=== PATIENT | female | born 1955 | race Caucasian/White ===

== ENCOUNTER 2022-06-23 06:04 | Inpatient (IN) | payer MEDICARE, SELFPAY ==
[2022-06-23] VITALS (23 sets, daily range): BP systolic 102–150; BP diastolic 52–83; PULSE 60–94; RESP 10–18; TEMP 35.7–36.9; O2SAT 92–98; BMI 23.6
[2022-06-23] MEDS: LACTATED RINGERS 1000 ML 1,000 ML 35 ML IV ×2 (06:30→09:20)
[2022-06-23] MEDS: SODIUM CHLORIDE 0.9 % (FLUSH) 10 ML SYRINGE IVF (06:55)
[2022-06-23 07:14] LABS: Basophils Absolute Auto 0.02 K/uL (0.00-0.30); Basophils Percent Auto 0.3 % (0.0-3.0); Eosinophils Absolute Auto 0.11 K/uL (0.00-0.50); Eosinophils Percent Auto 1.6 % (0.0-7.0); Hematocrit 40.9 % (33.0-51.0); Hemoglobin* 13.8 gm/dL (12.0-16.0); Immature Granulocytes Abs Auto 0.01 K/uL (0.00-0.30); Lymphocytes Absolute Auto 1.98 K/uL (0.90-2.90); Lymphocytes Percent Auto 28.9 % (20-44); Mean Corpuscular HGB Conc 34 gm/dL (32-36); Mean Corpuscular Hemoglobin 32 pg (26-34); Mean Corpuscular Volume 93 fL (80-100); Monocytes Percent Auto 7.2 % (0.0-11.0); Neutrophils Absolute Auto 4.24 K/uL (1.7-7.0); Neutrophils Percent Auto 61.9 % (42.0-72.0); Platelet Count* 256 K/uL (140-440); RDW Coefficient of Variation % 12.4 % (11.5-15.5); Red Blood Count 4.38 m/uL (4.00-5.20); White Blood Count* 6.85 K/uL (4.50-11.00)
[2022-06-23 07:17] LABS: Slide Review Reflex No
[2022-06-23] MEDS: CIPROFLOXACIN 400 MG/200 ML inj IVPB ×2 (07:55→20:01)
[2022-06-23] MEDS: metroNIDAZOLE 500 MG/100 ML PIGGYBACK IVPB ×2 (08:30→16:29)
--- NOTE | 2022-06-23 09:34 | SUR.OPER ---
Updated sister of surgical progress @3330. Sister was thankful for the call.
--- NOTE | 2022-06-23 09:50 | P.NB_ITS ---
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 Images saved: Yes Medications given in 5ml increments after negative aspiration: Marcaine %: 0.25 mL: 30 Needle gauge: 20 and Exparel mL: 10 Patient tolerated procedure well: Yes Block Charges Block Charge (with Pro Fee): TAP Bilateral Use of Ultrasound Machine for Block: Yes- US Guidance/pain block
[2022-06-23] MEDS: KETOROLAC 15 MG/ML inj IVP (09:58)
--- NOTE | 2022-06-23 10:02 | PM.GSPRC ---
Operative Note Date of procedure: 06/23/22 Type of Procedure: Laparoscopic right hemicolectomy Procedure Description: After discussing the risks and benefits of the procedure, the patient signed informed consent.? The operative site was marked and the patient was brought to the operating room and placed on the operating table in supine position.? Care was taken to pad the patient's pressure points.?? The patient was then intubated by anesthesia.?? A tap block was performed to help assist with postop pain management. A Yi was sterilely placed. The operative site was then prepped and draped in the usual sterile fashion.? A time-out was then performed. Dr. Katz placed a 5mm Visiport into the left upper quadrant under direct visualization. The abdomen was insufflated and examined for any injury, with none found. An additional 5 mm port was placed at the umbilicus and lower midline. A 12 mm port was placed in the lower left quadrant. All ports were placed under direct visualization. I helped assist with retraction while Dr. Katz raise the cecum towards the anterior abdominal wall and identified the ileocolic pedicle. The peritoneum over the mesentery was dissected away with the LigaSure device and the vessels circumferentially dissected out. The vessels were going directly into the colonic wall and well away from the ureter, which remained out of our operative field. Dr. Katz then took a 30 mm vascular laparoscopic stapler and transected the pedicle. The staple line was examined and hemostasis was excellent. I continued to assist with retraction while Dr. Katz dissected through the mesentery and entered into the avascular plane between the mesentery and retroperitoneum. She further develop this plane with blunt dissection until the duodenum was visualized, signifying the end of our medial dissection. Overlying mesentery was further dissected with the LigaSure device up to the middle colic vessels. I then assisted with retraction while Dr. Katz dissected the gastrocolic ligament entering into the lesser sac. The overlying mesentery of the transverse colon was dissected away and Dr. Katz carefully took down the hepatic flexure and the hepatocolic ligaments. I then used the LigaSure device to take down the lateral attachments of the ascending colon along the lateral abdominal wall. Dissection was carried down to the terminal ileum. Once the colon was fully mobilized Dr. Katz carefully took down the mesentery of the terminal ileum. A grasper was then placed on the appendix and we decided to moved to the open portion of the procedure. Dr. Katz made a midline incision around the umbilicus with a 15 blade. Dissection was carried down through the subcutaneous tissue with electrocautery. The midline of the fascia was identified and sharply incised with electrocautery. I then assisted with retraction and identification of the peritoneum which was sharply incised and the abdomen entered. The abdomen was then desufflated and the incision carried superiorly and inferiorly. A small Kenneth wound retractor was placed into the incision. The specimen was identified and brought into the operative field. A mid portion of the transverse colon was identified for transection. This did appear to have good palpable mesenteric blood flow and was viable in appearance. Dr. Katz carefully dissected off epiploic fat and made a hole in the mesentery adjacent to the colonic wall. A 60 mm laparoscopic bowel staple load was used to transect the colon. The staple line was inspected and there was a small point of bleeding, which was controlled with an interrupted 3-[address] Katz then identified a point of the terminal ileum for dissection. A hole was made in the mesentery adjacent to the bowel wall and a 45 mm laparoscopic bowel staple load used to transect the terminal ileum. The staple line was inspected and appeared viable, with evidence of adequate hemostasis. Any remaining mesenteric attachments were then dissected with the LigaSure device and the specimen was placed on the back table to be sent to pathology. Dr. Katz did examine the specimen on the back table and was able to identify the large polyp, with adequate margins appreciated. Dr. Katz then placed a stay stitch suture, to help with alignment of the small bowel and colon, ensuring that the anti mesenteric and mesenteric portions of the bowel were lined up parallel. I helped assist with retraction while she excised off a corner of each staple line. An 80 mm Endo-TOMÁS staple load was then placed into each enterotomy and a small bowel to colonic [id number], functional end-to-end anastomosis created. As the stapler was removed the mucosa was visualized, with no evidence of bleeding. Dr. Katz then used interrupted Lembert stitches of 3-0 silk suture to close the common enterotomy. I placed a single crotch stitch of 3-0 silk. The anastomosis appeared well intact with no evidence of leakage. The anastomosis was then placed back into the abdomen and all dirty equipment passed off the field. Our outer gloves were also exchanged at this point in the procedure. The midline fascia was closed with running 1-0 PDS suture and the abdomen reinsufflated. The anastomosis was intact with no twisting of the mesentery identified. Hemostasis was excellent at the end of the case. At this point in the procedure I left the operating room and Dr. Katz finished with closure of the incisions, please see her operative dictation report for full discussion. The patient tolerated the procedure well. Findings: Advanced adenoma of the cecum. Anesthesia: GETA Surgeon: Rukhsana Katz MD Co-Surgeon: Iman Jackson MD Estimated blood loss (mL): 15 Condition: stable Disposition: PACU
--- NOTE | 2022-06-23 10:28 | W.ANESCHARGE ---
Anesthesia Charges Start Date/Time Anesthesia Start Date: 06/23/22 Anesthesia Start Time: 07:45 Stop Date/Time Anesthesia Stop Date: 06/23/22 Anesthesia Stop Time: 10:25 Summary Emergency: No
--- NOTE | 2022-06-23 10:34 | P.GSOP_ITS ---
Operative Note Date of procedure: 06/23/22 Type of Procedure: Laparoscopic right hemicolectomy Procedure Description: After discussing the risks and benefits of the procedure, the patient signed informed consent.? The operative site was marked and the patient was brought to the operating room and placed on the operating table in supine position.? Care was taken to pad the patient's pressure points.?? The patient was then intubated by anesthesia.?A TAP block was performed by Anesthesia. Please see their note for details. A Yi was then placed. The operative site was then prepped and draped in the usual sterile fashion.? A time-out was then performed. ? Entrance to the abdomen was gained via Visiport technique in the left upper quadrant. The layers of the abdominal wall were visualized. The abdomen was then insufflated and briefly surveyed. There was no sign of injury. There was no intra-abdominal adhesions noted. Additional ports were then placed. A 12 mm port was placed in the right lower quadrant. A 5 mm port was placed in the lower midline and a 5 mm port was placed just below the umbilicus. These were all done under direct vision. The patient was then placed in Trendelenburg position with the right side up. The ileocecal junction was then visualized after moving the small bowel into the left abdomen. This was then grasped and lifted anteriorly exposing the ileocolic pedicle. Dr. Jackson retracted the colon anteriorly while I used the LigaSure to incise the mesentery and carefully dissect out the ileocolic pedicle. Once this was done, I used a vascular load Endo-TOMÁS stapler to divide the ileocolic pedicle. There was no bleeding noted from the staple line. Dr. Jackson then retracted the ascending colon anteriorly while I began my retroperitoneal dissection. The avascular plane was entered and dissection was taken laterally to the pelvic sidewall, medially to the duodenum and superiorly toward the liver. Once this was done I did open the mesentery further toward the duodenum. Dr. Jackson and I then lifted the omentum anteriorly and identified the middle colic vessels. We began our dissection of the gastrocolic ligament to the right of this. Dr. Jackson retracted the omentum while I retracted the colon inferiorly. Using LigaSure I divided the gastrocolic ligament, and took this dissection around the hepatic flexure of the transverse colon with care to avoid the duodenum and gallbladder. Once this was done Dr. Jackson then used LigaSure while I retracted the colon medially to divide the white line of [place]. Once the lateral peritoneal attachments were completely divided, the colon was quite mobile. I then took the LigaSure and divided the peritoneum/retroperitoneal attachments by the ileocecal valve, freeing the terminal ileum from the retroperitoneum. I did divide the mesentery here a small amount so that the ileum was freely mobile. Dr. Jackson provided retraction at this time of the ascending colon Once this was done, we re-evaluated to ensure that our dissection was complete and I grasped appendix with a locking grasper. The patient was then placed flat and periumbilical incision was then created. Dissection was taken down to the subcutaneous tissue using cautery. I incised the fascia and the peritoneum, entering the peritoneal cavity. I then placed an Kenneth wound retractor in the wound. Dr. Jackson then grasped the specimen and pulled it through the incision. We ensured that the ends were not twisted. The area of the planned resection appeared well perfused. I 1st identified a well perfused area of distal ileum approximately 20 cm proximal to the ileocecal bowel. I created a mesenteric window. Through this I fired a purple load Endo- TOMÁS stapler firing. Hemostasis appeared excellent. I then used LigaSure to divide the small amount of remaining mesentery here. And then turned my attention to the transverse colon. The patient had 2 small diverticuli noted on the mesenteric side. I chose to perform my resection just distal to this. We identified the middle colic vessels and performed our dissection just to the right of this. I removed the omentum from the transverse colon using cautery. Once this was done I again created a mesenteric window. Through this I fired a purple load Endo-TOMÁS stapler across the end of the colon. He the remaining small area of mesentery on the transverse colon containing the right branch of the middle colic artery was then divided with LigaSure. The specimen was then passed off the table. The staple lines were examined for hemostasis. A small area of bleeding near the transverse colon mesentery was oversewn. I then created a stay stitch near the staple lines. I then created enterotomies in the transverse colon as well as the terminal ileum, cutting off the corner of the staple line. There was excellent blood flow to both ends of the bowel. Dr. Jackson provided retraction and also suctioned any bowel contents that leaked out. I then passed each and of a blue load TOMÁS stapler into each enterotomy and the stapler on the anti mesenteric border of each end of bowel. After ensuring there were no intervening structures I fired the stapler, creating a 70 cm anastomosis. I then examined the staple line and there was no evidence of bleeding. Dr. Jackson then again provided retraction while I closed the common enterotomy with interrupted 3-0 silk sutures in a Lembert fashion. Once this was done the anastomosis appeared widely patent. A cross stitch was placed. I did not close the the mesenteric defect. The anastomosis was examined for bleeding. It appeared healthy and well perfused without evidence of bleeding. This was dropped back into the abdomen. The Kenneth wound retractor was removed. Our gloves and instruments were changed. Dr. Jackson and I then each closed each side of the small periumbilical incision with 1. PDS in a running fashion. The abdomen was then reinsufflated and briefly examine. There was no sign of bleeding. The anastomosis sat nicely in the right upper quadrant. I then closed the right lower quadrant 12 mm port site with 0 Vicryl using a Jesus- Luzmaria device. The abdomen was then desufflated. The remaining ports were removed. The midline wound was closed with 3 0 Vicryl dermal and 4 0 Monocryl running subcuticular suture. The port sites were closed with Monocryl subcuticular suture. Sterile dressings were then applied. ? The patient was then woken and transported to the recovery area in stable condition. ? The patient tolerated the procedure well. Findings: Right hemicolectomy performed. Specimen was opened on the back table and found to contain the polyp in the cecum. Anesthesia: GETA Surgeon: Rukhsana Katz MD Estimated blood loss (mL): 15 Condition: stable Disposition: PACU
[2022-06-23] MEDS: PROMETHAZINE 25 MG/ML INJ 12.5 MG IVP (11:56)
[2022-06-23] MEDS: HYDROmorphone 0.5 mg/0.5 ml inj IVP (11:57)
[2022-06-23] MEDS: LACTATED RINGERS 1000 ML 1,000 ML 125 ML IV (15:28)
[2022-06-23] MEDS: HYDROCODONE-ACETAMIN 5-325 MG 1 TAB PO ×2 (21:07→22:05)
--- NOTE | 2022-06-23 23:41 | PC.NURSE ---
End of Shift: Patient pleasant and cooperative. Afebrile. Lap sites with steri-strips intact with old drainage, mid-abdominal dressing C/D/I. Tolerating clear liquid diet with no nausea. Up to bathroom and chair with SBA and gait belt. Rating pain 0/10 most of the shift but increased around 2100. PRN [place] given.
[2022-06-24] VITALS (11 sets, daily range): BP systolic 96–138; BP diastolic 49–69; PULSE 64–82; RESP 18; TEMP 36.3–36.6; O2SAT 94–97
[2022-06-24] MEDS: metroNIDAZOLE 500 MG/100 ML PIGGYBACK IVPB ×2 (00:29→09:14)
[2022-06-24] MEDS: LACTATED RINGERS 1000 ML 1,000 ML 125 ML IV (02:52)
--- NOTE | 2022-06-24 06:33 | PC.NURSE ---
END OF SHIFT NOTE: PT PLEASANT AND COOPERATIVE. VSS ON RA. AFEBRILE. LR@125ML/HR. LAP SITES WITH STERI STRIPS AND UMBILICAL DRESSING CDI. PT HAS NOT PASSED FLATUS. PT TOLERATING CLEAR LIQUID DIET. PT SLEPT WELL THROUGH THE NIGHT. DENIES CP, SOB, N/V.
[2022-06-24 06:37] LABS: Basophils Percent Auto 0.1 % (0.0-3.0); Hematocrit 32.2 % (33.0-51.0); Hemoglobin* 10.6 gm/dL (12.0-16.0); Immature Granulocytes Abs Auto 0.01 K/uL (0.00-0.30); Lymphocytes Percent Auto 15.8 % (20-44); Mean Corpuscular HGB Conc 33 gm/dL (32-36); Mean Corpuscular Hemoglobin 32 pg (26-34); Mean Corpuscular Volume 97 fL (80-100); Monocytes Percent Auto 7.8 % (0.0-11.0); Neutrophils Percent Auto 76.2 % (42.0-72.0); Platelet Count* 210 K/uL (140-440); RDW Coefficient of Variation % 12.9 % (11.5-15.5); Red Blood Count 3.33 m/uL (4.00-5.20); White Blood Count* 12.61 K/uL (4.50-11.00)
[2022-06-24 06:54] LABS: Chloride* 106 mmol/L (96-114); Sodium* 138 mmol/L (135-149)
[2022-06-24 06:55] LABS: Potassium* 3.8 mmol/L (3.6-5.1)
[2022-06-24 06:56] LABS: Slide Review Reflex No
[2022-06-24 06:57] LABS: Carbon Dioxide* 28 mmol/L (20-32); Est. Creatinine Clearance* 47.79; Estimated Glomerular Filt Rate 62 ml/min
[2022-06-24 06:58] LABS: Blood Urea Nitrogen* 14 mg/dL (7-30); Calcium* 7.9 mg/dL (8.4-10.6); Glucose* 103 mg/dL (60-115)
[2022-06-24] MEDS: CIPROFLOXACIN 400 MG/200 ML inj IVPB (07:39)
[2022-06-24] MEDS: HYDROCODONE-ACETAMIN 5-325 MG 1 TAB PO ×2 (07:46→17:19)
--- NOTE | 2022-06-24 11:15 | PC.SOCIAL ---
Met with pt. and her sister Eufemia Wilson who is patient guardian and health care agent. Pt.'s fpc was requesting a POLST for pt. since pt. has not updated her health care directive since 2013. Filled out a POLST with pt. and her guardian and pt. signed.
--- NOTE | 2022-06-24 16:44 | PM.GSPN ---
Subjective Subjective Date Seen: 06/24/22 Interval history: Patient is doing well postoperatively. Her pain is controlled. She is barely taking pain medication. She is not sure if she passed gas but her sister thought maybe she did. She tolerated clears so far. She ambulated twice today. Exam Narrative: Exam Narrative: Abdomen: Soft, not distended, tender to palpation in the left lower quadrant but not right lower quadrant, surgical incisions are covered with Steri-Strips and sterile dressing. Const: Vital Signs, click to edit/add: Vital Signs - 24 hr 06/23/22 19:00 06/23/22 17:00 06/23/22 23:00 Temperature 98.5 F 98.2 F Pulse Rate [Left P ulse Oximeter] 88 86 94 Respiratory Rate 16 16 16 Blood Pressure [Le ft Arm] 116/75 129/60 Pulse Oximetry 96 97 Oxygen Delivery Me thod Room Air Room Air 06/23/22 23:00 06/24/22 03:00 06/24/22 04:56 Temperature 97.6 F 97.9 F Pulse Rate [Left P ulse Oximeter] 94 74 Respiratory Rate 16 18 Blood Pressure [Le ft Arm] 115/54 L 96/49 L 100/56 L Pulse Oximetry 95 94 Oxygen Delivery Me thod Room Air Room Air 06/24/22 07:46 06/24/22 07:00 06/24/22 08:00 Temperature 97.9 F 97.9 F Pulse Rate [Left P ulse Oximeter] 66 64 Respiratory Rate 18 18 Blood Pressure [Le ft Arm] 97/59 L Pulse Oximetry 96 Oxygen Delivery Me thod Room Air 06/24/22 12:00 06/24/22 15:00 Temperature 97.4 F L Pulse Rate [Left P ulse Oximeter] 75 75 Respiratory Rate 18 18 Blood Pressure [Le ft Arm] 130/62 Pulse Oximetry 97 Oxygen Delivery Me thod Room Air Progress Note: A&P Assessment and plan (1) S/P right hemicolectomy: Status: Acute Assessment and Plan: 66-year-old female s/p right hemicolectomy POD 1. Patient is doing well. Will keep her on clears and in the morning advance her diet to full liquid diet. If she would like to have Ensures that are not clear, she can have those. Patient will continue ambulating. I discussed with her and her sister that her hemoglobin went down by 3 points. Patient is not tachycardic, her abdomen is not distended, and she is hemodynamically stable. I do not think she has active bleeding. Her anemia is most likely a combination of hemoconcentration on presentation for surgery (patient had colonoscopy prep), and dilutional anemia. I will however hold Lovenox for today. If her hemoglobin continues to be stable tomorrow, she will be put on Lovenox.
--- NOTE | 2022-06-24 17:26 | PC.NURSE ---
Shift Note [id number]: Pt friendly and cooperative with cares. Able to verbalize needs. BP's soft this am, pt asymptomatic and pressures have improved throughout the day. Afebrile. Lap sites to abdomen with steri strips. Sites well approximated with scant amounts of old bloody drainage. hypoactive bowel sounds, pt tolerating clears without difficulty. Moves well with assist x1 and walked unit approximately 200 ft x2. Very good urine output, pt saline locked. Rates pain by little, kind of a lot, or a lot versus the numeric pain scale. 1 tab Theresa PRN. Sister at bedside most of the day.
[2022-06-25] VITALS (9 sets, daily range): BP systolic 115–141; BP diastolic 62–76; PULSE 61–78; RESP 16–18; TEMP 36.3–36.7; O2SAT 95–98
[2022-06-25] MEDS: HYDROCODONE-ACETAMIN 5-325 MG 1 TAB PO ×3 (02:23→22:09)
--- NOTE | 2022-06-25 06:47 | PC.NURSE ---
Addendum entered by Niki Mario RN 06/25/22 06:51: Pain managed with [place] Original Note: Alert and oriented to self and place. Vitals stable. Afebrile. Abdominal pain managed with Percocet. Up and ambulating with SBA around the room. No concerns noted
[2022-06-25 08:20] LABS: Hemoglobin* 12.1 gm/dL (12.0-16.0)
--- NOTE | 2022-06-25 08:42 | PM.GSPN ---
Subjective Subjective Date Seen: 06/25/22 Interval history: Patient is doing well. She tolerated clears yesterday. She is passing gas. She ambulated. She feels great today. Exam Narrative: Exam Narrative: Abdomen: Soft, not distended, not tender to palpation, surgical incisions are healing well with no erythema. Const: Vital Signs, click to edit/add: Vital Signs - 24 hr 06/24/22 12:00 06/24/22 15:00 06/24/22 16:00 Temperature 97.4 F L 97.4 F L Pulse Rate [Left P ulse Oximeter] 75 75 75 Respiratory Rate 18 18 18 Blood Pressure [Le ft Arm] 130/62 130/62 Pulse Oximetry 97 97 Oxygen Delivery Me thod Room Air Room Air 06/24/22 19:47 06/24/22 22:13 06/24/22 23:51 Temperature 97.4 F L 97.4 F L Pulse Rate [Left P ulse Oximeter] 82 76 76 Respiratory Rate 18 18 18 Blood Pressure [Le ft Arm] 107/55 L 138/69 Pulse Oximetry 95 95 Oxygen Delivery Me thod Room Air Room Air 06/25/22 04:00 Temperature 97.3 F L Pulse Rate [Left P ulse Oximeter] 69 Respiratory Rate 18 Blood Pressure [Le ft Arm] 115/62 Pulse Oximetry 95 Oxygen Delivery Me thod Room Air Progress Note: A&P Assessment and plan (1) S/P right hemicolectomy: Status: Acute Plan 66-year-old female s/p laparoscopic right hemicolectomy POD 2. Patient can advance her diet as tolerated. If she continues to do well and tolerates regular diet, most likely discharge home tomorrow.
[2022-06-25] MEDS: ENOXAPARIN 40 MG/0.4 ML INJ SUBCUT (10:23)
--- NOTE | 2022-06-25 16:43 | PC.NURSE ---
Shift Note [id number]: Pt friendly and cooperative. VS WNL and LS COA. BS hypoactive, pt advanced to full liquids this morning without difficulty. Lap sites intact and appear free of infection. Abdomen soft. BM x2, loose with scant amount of blood. Ambulating unit with SBA x2. Lovenox started daily. Sister at bedside. Pain is well controlled with PRN [place].
[2022-06-26 03:00] VITALS: BP 134/70; PULSE 68; RESP 16; TEMP 36.6; O2SAT 96
[2022-06-26] MEDS: HYDROCODONE-ACETAMIN 5-325 MG 1 TAB PO ×2 (04:54→09:09)
--- NOTE | 2022-06-26 06:10 | PC.NURSE ---
Alert and oriented to self and place. Satting above 90% on room air. Vitals are stable. Abd pain managed with [place] and tolerating fine. Ambulating fine independently. Denies any concerns
[2022-06-26 07:00] VITALS: BP 134/85; PULSE 76; RESP 16; TEMP 36.6; O2SAT 95
--- NOTE | 2022-06-26 08:51 | P.DS_ITS ---
DS: Providers Provider Date Seen: 06/26/22 Date of admission: 06/23/22 06:04 Primary care physician: Corrie Leger MD Admitting Clinician: Rukhsana Katz MD Attending Physician on discharge: Rukhsana Katz MD DS: Diagnosis Discharge Diagnosis (1) S/P right hemicolectomy: Status: Acute DS: Summary Hospital Course Hospital Course: Patient was admitted to the hospital after she underwent laparoscopic right hemicolectomy. She did great over her hospital course. On the day of discharge she was tolerating regular diet, passing gas and having bowel movements. Cara morales was discharged to her correction. Time Spent with Patient Time attestation: Total time spent providing and/or coordinating discharge services: Exam Narrative: Exam Narrative: Abdomen: Soft, not distended, minimally tender to palpation in the left lower quadrant, surgical incisions with debbie-incisional ecchymosis as expected postoperatively, Steri-Strips are clean and dry. Const: Vital Signs, click to edit/add: Vital Signs - 24 hr 06/25/22 12:00 06/25/22 15:16 06/25/22 16:43 Temperature 97.9 F 97.5 F L Pulse Rate [Left P ulse Oximeter] 72 72 61 Respiratory Rate 16 16 16 Blood Pressure [Le ft Arm] 118/68 125/76 Pulse Oximetry 95 98 Oxygen Delivery Me thod Room Air Room Air 06/25/22 19:00 06/25/22 22:59 06/25/22 23:00 Temperature 97.5 F L 97.5 F L Pulse Rate [Left P ulse Oximeter] 78 78 78 Respiratory Rate 16 16 16 Blood Pressure [Le ft Arm] 141/62 H 125/69 Pulse Oximetry 98 98 Oxygen Delivery Me thod Room Air Room Air 06/26/22 03:00 06/26/22 07:00 06/26/22 07:00 Temperature 97.8 F 97.9 F Pulse Rate [Left P ulse Oximeter] 68 76 76 Respiratory Rate 16 16 16 Blood Pressure [Le ft Arm] 134/70 134/85 Pulse Oximetry 96 95 Oxygen Delivery Me thod Room Air Room Air Discharge Plan Discharge Disposition: Xfer Other Date of Admission: 06/23/22 06:04 Attending Provider on Discharge: Ely Donaldson Primary Care Provider: Corrie Leger Condition: Stable Anticipated Discharge Date/Time: 06/26/22 08:48 Discharge Medications: New hydrocodone-acetaminophen 5-325 mg Tablet 1 - 2 tab PO Q4H PRN (Reason: Pain) Qty: 14 0RF Continued aspirin 81 mg tablet,chewable 1 tab PO DAILY calcium carbonate 600 mg calcium (1,500 mg) tablet 1,200 mg PO DAILY ibuprofen 200 mg tablet 200 - 400 mg PO BID PRN Probiotic 3 billion cell capsule 3,000 mmu cells PO DAILY Rx Instructions: administer with a meal cholecalciferol (vitamin D3) 50 mcg (2,000 unit) capsule 4,000 unit PO DAILY Discharge Orders: Discharge Order (Routine); Ordered 06/26/22 Ordered By: Ely Donaldson Activity Restrictions/Additional Instructions: Wound care: Your sutures are under the skin and will dissolve over time. Leave steri strips (white bandages) over incisions until they fall off (or remove after 7 days). OK to shower but avoid bathing, soaking or swimming for 2 weeks. Pat the incisions dry. No need to wash or scrub the area. Apply ice to the area as needed for swelling. It is also OK to use a heating pad if this provides more comfort to you. Pain control: If you were prescribed a pain medication, this medication contains acetaminophen (Tylenol). If you are taking your prescribed pain pills 4 times daily, do not take additional acetaminophen. As your pain improves, you can try taking acetaminophen instead of the prescribed pain pill. It is ok to take Ibuprofen or Naproxen (per directions on packaging). This medication helps with inflammation and swelling. Take an [id number] stool softener while you are taking prescribed pain medications to help alleviate constipation. I recommend Senna and/or Colace. Take as directed on package. If you have not had a bowel movement in 3 days, try taking Miralax as directed on the package. All of these are available over the counter. Follow-up Follow up with Dr. Katz in 2-3 weeks Please call if you are experiencing severe pain, nausea, vomiting, difficulty urinating, fever or have not had bowel movement in 4 days after surgery. Activity Level: No strenuous activity Activity Detail: no lifting more than 20 pounds for 4 weeks Discharge Diet: Regular Follow Up Appointments: Rukhsana Katz MD [Staff Physician] - Corrie Leger MD [Primary Care Provider] - Forms: [facility] Info Instructions Hospital Course: Patient was admitted to the hospital after she underwent laparoscopic right hemicolectomy. She did great over her hospital course. On the day of discharge she was tolerating regular diet, passing gas and having bowel movements. Patient was discharged to her correction. Discharge Comment: Patient will discharge to her correction
[2022-06-26] MEDS: ENOXAPARIN 40 MG/0.4 ML INJ SUBCUT (09:10)
[2022-06-26 11:00] VITALS: BP 120/64; PULSE 90; RESP 16; TEMP 36.6; O2SAT 96
--- NOTE | 2022-06-26 11:54 | PC.NURSE ---
Discharge note: Pt friendly and cooperative. Ambulating hallways with SBA. Pain well controlled with 1 tab [place] PRN. Tolerating regular diet without difficulty. 2 xs loose bm's, no blood noted. Pt was [facility] in the care of her group exercise instructor Eufemia at noon. Pt and Eufemia verbalized understanding of discharge instructions and follow up appointments.
== END 2022-06-26 12:01 | disposition other institution (70) | DRG 330 ==
PROVIDERS: Surgery; Admitting Provider Surgery; PCP Family Medicine; Visit Provider Surgery
PROC: 0DTF4ZZ Resection of Right Large Intestine, Percutaneous Endoscopic Approach (ICD-10-PCS; principal; 2022-06-23 07:30)
DX: D12.0 Benign neoplasm of cecum (principal); K90.41 Non-celiac gluten sensitivity; F79 Unspecified intellectual disabilities; F43.23 Adjustment disorder with mixed anxiety and depressed mood; F41.1 Generalized anxiety disorder; E78.5 Hyperlipidemia, unspecified; N18.30 Chronic kidney disease, stage 3 unspecified
CPT/HCPCS: 00840; 36415; 64488; 76942; 80048; 85018; 85025; 86850; 86900; 86901; 88309; A9270; C9290; J0330; J0744; J1100; J1170; J1650; J1885; J2250; J2370; J2405; J2550; J2704; J2710; J3010; J3475; J3490; J7120; S0030

== ENCOUNTER 2024-02-19 10:42 | Outpatient (CLI) | payer MEDICARE, SELFPAY ==
--- NOTE | 2024-02-19 12:59 | W.ANESCHARGE ---
Anesthesia Charges Start Date/Time Anesthesia Start Date: 02/19/24 Anesthesia Start Time: 12:35 Stop Date/Time Anesthesia Stop Date: 02/19/24 Anesthesia Stop Time: 12:55
--- NOTE | 2024-02-19 12:59 | W.ANESCHARGE ---
Anesthesia Charges Start Date/Time Anesthesia Start Date: 02/19/24 Anesthesia Start Time: 12:35 Stop Date/Time Anesthesia Stop Date: 02/19/24 Anesthesia Stop Time: 12:55
== END 2024-02-19 10:43 | disposition home or self-care (01) ==
LOC: OP CLINIC 10:45
PROVIDERS: PCP Family Medicine; Visit Provider Internal Medicine Gastroenterology
DX: Z86.010 Personal history of colon polyps (principal); Z98.0 Intestinal bypass and anastomosis status
CPT/HCPCS: 00811; 00812; 45378; J2704

== ENCOUNTER 2024-02-27 20:16 | Emergency (ER) | payer MEDICARE, SELFPAY ==
[2024-02-27] VITALS (14 sets, daily range): BP systolic 120–149; BP diastolic 77–84; PULSE 91–102; RESP 20; TEMP 36.8; O2SAT 93–100; BMI 25.1
--- NOTE | 2024-02-27 21:03 | CT_ITS ---
Patient: JOHANA ROD Facility:?[facility] Patient ID:?[id number] Site Patient ID:?[id number]. Site :?[id number] Study:?CT-Abdomen/Pelvis W/83CC [id number]/23/2024 10:23:09 PM Ordering Physician:LOPEZ Final Report: INDICATION: Vomiting, left lower quadrant pain, history of bowel resection. TECHNIQUE: CT of the abdomen and pelvis acquired with 83 cc Isovue 370 IV contrast. Coronal and sagittal reconstructions. COMPARISON: None. FINDINGS: Exam limited by motion artifact. The liver, gallbladder, spleen, and adrenal glands are negative. Low-density appearance of the pancreatic head and neck likely due to fatty infiltration. No biliary or pancreatic duct dilation. Hepatic and portal veins are patent. Symmetric enhancement of the kidneys. No hydronephrosis or ureteral dilation. No obstructing urinary calculi identified. No bladder wall thickening. Uterus is unremarkable. Small hiatal hernia. Postoperative changes of right hemicolectomy. The small bowel and colon are diffusely fluid-filled without evidence of obstruction. Colonic diverticulosis without evidence of diverticulitis. Mild wall thickening and enhancement of the rectosigmoid colon. Findings suggest a nonspecific enterocolitis. No intraperitoneal free air or fluid. No lymphadenopathy. Aortoiliac vascular calcifications. The lung bases are clear. Degenerative changes of the spine. Mild retrolisthesis of L1 on L2 and L2 on L3. Mild anterolisthesis of L3 on L4 and L4 on L5. IMPRESSION: Diffusely fluid-filled small bowel and colon with inflammatory changes of the rectosigmoid colon. Findings suggest a nonspecific enterocolitis. No evidence of obstruction. Please note that all CT scans at this facility use dose modulation, iterative reconstruction, and/or weight-based dosing when appropriate to reduce radiation dose to as low as reasonably achievable. Dictated by Maggie River MD @ 02/27/2024 10:59:48 PM Signed by:?Maggie River MD @02/27/2024 10:59:48 PM (Electronic Signature)
--- NOTE | 2024-02-27 21:08 | ED_ITS ---
HPI - General Adult General Chief complaint: Nausea/Vomiting Stated complaint: Nausea, vomiting, weakness Time Seen by Provider: 02/27/24 20:53 Source: patient, RN notes reviewed and other ( skilled nursing assisted sales representative) Mode of arrival: ambulatory Limitations: no limitations History of Present Illness HPI narrative: 68-year-old female presents to the emergency department with a 2 hour history of vomiting. She is accompanied by [facility] staff. They report that she had been well all day, behaving normally. She had not complained of any pain. Shortly after dinner, she started vomiting and asked to be taken back to her room. There she was observed by staff to be very weak. She was responsive but just weaker than usual. She had several more episodes of vomiting and diarrhea. There was no blood present. No fever. No trauma or injury. She actually had a colonoscopy recently to follow-up on a prior history of some large polyps which was benign per the [facility] team. 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 She does not take any long-term medications. She is reporting a little bit of chest pain but when I asked to show me where, she points to the epigastrium, not the chest. She is partly verbal and can usually express her pain and needs consistently with staff. No falls, injury or trauma. They did not try any interventions at the [facility] prior to transfer to the ED. past medical history notable for the prior partial colectomy, no other long- term medical problems, no prescription medications, no medication allergies but is sensitive to gluten though she does not have celiac per her paperwork. Nonsmoker, no alcohol intake. ROS notable for the generalized, GI symptoms as described above only, otherwise denies times 12 systems. Related Data Home Medications Medication Instructions Recorded Confirmed aspirin 81 mg chewable tablet 1 tab PO DAILY 06/21/22 06/23/22 calcium carbonate 1,200 mg PO DAILY 06/21/22 06/23/22 cholecalciferol (vitamin D3) 50 4,000 unit PO DAILY 06/21/22 06/23/22 mcg (2,000 unit) capsule ibuprofen 200 mg tablet 200 - 400 mg PO BID PRN 06/21/22 06/23/22 lactobacillus combination no.4 3 3,000 mmu cells PO DAILY 06/21/22 06/23/22 billion cell capsule (Probiotic) melatonin 1 mg tablet 1 mg PO DAILY 02/27/24 02/27/24 Allergies Allergy/AdvReac Type Severity Reaction Status Date / Time Gluten Meal Allergy Unknown Uncoded 02/27/24 23:17 cats Allergy Uncoded 02/27/24 23:17 dust Allergy Uncoded 02/27/24 23:17 [facility] Medical History POLST (Physician Orders for Life-Sustaining Treatment) ?Z78.9 - Other specified health status (ICD-10) Colon polyp ?K63.5 - Polyp of colon (ICD-10) Chronic kidney disease, stage 3 unspecified ?N18.30 - Chronic kidney disease, stage 3 unspecified (ICD-10) Hyperlipidemia, unspecified ?E78.5 - Hyperlipidemia, unspecified (ICD-10) Generalized anxiety disorder ?F41.1 - Generalized anxiety disorder (ICD-10) Non-celiac gluten sensitivity ?K90.41 - Non-celiac gluten sensitivity (ICD-10) Anxiety state, unspecified ?F41.1 - Generalized anxiety disorder (ICD-10) Adjustment disorder with mixed anxiety and depressed mood ?F43.23 - Adjustment disorder with mixed anxiety and depressed mood (ICD-10) Unspecified intellectual disabilities ?F79 - Unspecified intellectual disabilities (ICD-10) Surgical History S/P right hemicolectomy ?Z90.49 - Acquired absence of other specified parts of digestive tract (ICD- 10) Hx of tonsillectomy ?Z90.89 - Acquired absence of other organs (ICD-10) Social History Highest level of school completed/degree received: never attended/kindergarten only Smoking Status: Never smoker Do you use any of these nicotine containing products: None Second hand tobacco smoke exposure: No How often do you have a drink containing alcohol: never How often do you have six or more drinks on one occasion: Never AUDIT-C Alcohol total score: 0 Non-prescribed substance use: denies use Caffeine: No service: No Exam Const: Vital Signs, click to edit/add: Vital Signs - 24 hr 02/27/24 20:25 02/27/24 21:25 02/27/24 21:30 Temperature 98.3 F Pulse Rate 97 95 Pulse Rate [Pulse Oximeter] 102 H Respiratory Rate 20 Blood Pressure Blood Pressure [Ri ght Upper Arm] 120/78 Pulse Oximetry 97 93 94 Oxygen Delivery Me thod Room Air 02/27/24 21:31 02/27/24 21:45 02/27/24 22:00 Temperature Pulse Rate 94 98 95 Pulse Rate [Pulse Oximeter] Respiratory Rate Blood Pressure 125/77 Blood Pressure [Ri ght Upper Arm] Pulse Oximetry 95 94 96 Oxygen Delivery Me thod 02/27/24 22:02 02/27/24 22:20 02/27/24 22:30 Temperature Pulse Rate 102 H 95 Pulse Rate [Pulse Oximeter] Respiratory Rate Blood Pressure 133/81 Blood Pressure [Ri ght Upper Arm] Pulse Oximetry 100 98 Oxygen Delivery Me thod 02/27/24 22:31 02/27/24 22:32 02/27/24 22:45 Temperature Pulse Rate 93 95 92 Pulse Rate [Pulse Oximeter] Respiratory Rate Blood Pressure 149/84 H Blood Pressure [Ri ght Upper Arm] Pulse Oximetry 99 100 99 Oxygen Delivery Me thod 02/27/24 23:00 02/27/24 23:01 Temperature Pulse Rate 92 91 Pulse Rate [Pulse Oximeter] Respiratory Rate Blood Pressure 139/80 Blood Pressure [Ri ght Upper Arm] Pulse Oximetry 100 100 Oxygen Delivery Me thod Documenting provider has reviewed patient's vital signs: yes Common normals: no apparent distress and alert General appearance: cooperative, comfortable and well kempt Other: Can answer some questions for me, does not seem disoriented or impaired. HENMT: Common normals: normocephalic, head/scalp atraumatic, moist oral mucous membranes and oropharynx normal Head and scalp: normocephalic and atraumatic Mouth: oral and palatal mucosa normal Eye: Common normals: conjunctivae normal General eye: normal appearance of both eyes Conjunctiva: conjunctiva(e) normal Neck & C-Spine: Common normals: full ROM and no lymphadenopathy Resp: Common normals: normal respiratory effort, no use of accessory muscles and clear to auscultation bilaterally Effort & inspection: able to speak in complete sentences Auscultation: clear to auscultation bilaterally Cardio: Common normals: regular rate, regular rhythm, S1 normal heart sound, S2 normal heart sound and no murmurs Rate: regular rate Rhythm: regular rhythm Heart sounds: S1 normal and S2 normal GI: Common normals: Normal to inspection, nondistended, normoactive bowel sounds present, soft to palpation, no hepatosplenomegaly and no masses Palpation: soft and no hepatosplenomegaly Other: Surgical scarring is consistent with reported history. She is tender to palpation in the left lower quadrant, out of proportion to the other areas of palpation. Certainly no rebound tenderness or guarding. Extremity: Common normals: normal to inspection, normal capillary refill and no pedal edema Neuro: Sensorium/orientation: alert Speech: speech normal Motor exam: strength 5/5 throughout and no tremor noted Psych: Appearance: well kempt Attitude: engaged Activity/motor behavior: appropriate eye contact Insight: fair Judgement: fair Skin: Common normals: no rashes or lesions noted General skin exam: no rashes or lesions noted Course Course ED Course: Sudden onset of vomiting and diarrhea, suspicious for gastroenteritis, influenza or other viral illness. She has limited verbal status and low IQ and this may impair her ability to tell me her symptoms. She is reporting a little bit of chest pain and is tender to the left lower quadrant on exam and has a history of prior colon resection. Differential diagnosis including besides a gastroenteritis or other viral infection, obstruction, Ischemic bowel,pancreatitis, volvulus, colitis, gynecological issue, amongst others. will start IV, give 1 L of normal saline, 4 of Zofran and due to her surgical history and limited verbal status I do recommend CT of the abdomen and pelvis. Typical abdominal labs. Troponin EKG.Await findings and clinical response. Reevaluation(s) Time of Reevaluation #1: 23:37 Reevaluation #1: Reviewed findings with patient and caregiver, feeling much better after Zofran fluid. No further episodes of vomiting or diarrhea here in the ED. Will be given 4 mg of Imodium. Counseled on findings. I think a trial of home management, pushing fluids, Zofran is reasonable. If she starts to show fevers or other signs of severe infection, she should be brought back right away. The high white count can be nonspecific, it does not sound like she has been on antibiotics recently that would be suspicious for C diff but we should maintain suspicion. She has not had further stools here that would suggest such. I would like for them to automatically give Zofran at 4 or 5:00 a.m. which would be 6 hours from her last ED dose and then switched to as needed every 8 hours. Push fluids, gently advance diet as tolerated, Imodium per standing orders. ED follow-up if not improving in 48 hours, sooner if any worsening. Vital Signs Vital signs: Initial Vital Signs Temperature 98.3 F 02/27/24 20:25 Temperature Source Temporal Artery Scan 02/27/24 20:25 Pulse Rate 102 H 02/27/24 20:25 Respiratory Rate 20 02/27/24 20:25 Blood Pressure 120/78 02/27/24 20:25 Blood Pressure Mean 92 02/27/24 20:25 Blood Pressure Position Sitting 02/27/24 20:25 Pulse Oximetry 97 02/27/24 20:25 Oxygen Delivery Method Room Air 02/27/24 20:25 Vital Signs Temperature 98.3 F 02/27/24 20:25 Pulse Rate 102 H 02/27/24 20:25 Respiratory Rate 20 02/27/24 20:25 Blood Pressure 120/78 02/27/24 20:25 Pulse Oximetry 97 02/27/24 20:25 Oxygen Delivery Method Room Air 02/27/24 20:25 Temperature 98.3 F 02/27/24 20:25 Pulse Rate 91 02/27/24 23:01 Respiratory Rate 20 02/27/24 20:25 Blood Pressure 139/80 02/27/24 23:01 Pulse Oximetry 100 02/27/24 23:01 Oxygen Delivery Method Room Air 02/27/24 20:25 Medications Administered Medications: Discontinued Medications Generic Name Dose Route Start Last Admin Trade Name Freq PRN Reason Stop Dose Admin Sodium Chloride 1,000 mls @ 1,000 mls/hr 02/27/24 21:04 02/27/24 23:25 0.9 % Sodium Chloride 1000 Ml IV 02/27/24 22:03 Infused .Q1H MARTÍN Infusion Ondansetron HCl 4 mg 02/27/24 21:03 02/27/24 21:25 Ondansetron 2 Mg/Ml Inj IVP 02/27/24 21:04 4 mg ONCE ONE Administration Medical Decision Making Lab Data Lab results reviewed: Yes I reviewed the patient's lab results Lab results narrative: Leukocytosis noted, it is mostly neutrophils. But the remainder of the labs look very good. Kidney function good, electrolytes good, inflammatory markers negative. Viral swabs negative and cardiac workup benign Labs: Lab Results 02/27/24 02/27/24 02/27/24 Range/Units 21:03 21:13 21:27 WBC 21.43 H (4.50-11.00) K/uL RBC 4.62 (4.00-5.20) m/uL Hgb 14.4 (12.0-16.0) gm/dL Hct 44.1 (33.0-51.0) % MCV 96 (80-100) fL MCH 31 (26-34) pg MCHC 33 (32-36) gm/dL RDW Coeff of Nate 12.5 (11.5-15.5) % Plt Count 298 (140-440) K/uL Neut % (Auto) 89.5 H (42.0-72.0) % Lymph % (Auto) 3.2 L (20-44) % [place] % (Auto) 6.7 (0.0-11.0) % Eos % (Auto) 0.3 (0.0-7.0) % Baso % (Auto) 0.1 (0.0-3.0) % Neut # (Auto) 19.20 H (1.7-7.0) K/uL Lymph # (Auto) 0.70 L (0.90-2.90) K/uL [place] # (Auto) 1.40 H (0.00-0.90) K/UL Eos # (Auto) 0.10 (0.00-0.50) K/uL Baso # (Auto) 0.00 (0.00-0.30) K/uL Abs Immat Gran (auto) 0.00 (0.00-0.30) K/uL Imm/Tot Granulo (auto) 0.2 % Sodium 139 (135-149) mmol/L Potassium 4.1 (3.6-5.1) mmol/L Chloride 104 (96-114) mmol/L Carbon Dioxide 23 (20-32) mmol/L Anion Gap 12 (7-15) mEq/L BUN 20 (7-30) mg/dL Creatinine 0.8 (0.5-1.5) mg/dL Estimated Creat Clear 56.27 Estimated GFR 80 ml/min Glucose 139 H (60-115) mg/dL Lactate 1.6 (0.5-1.9) mmol/L Calcium 9.0 (8.4-10.6) mg/dL Total Bilirubin 0.5 (0.1-1.5) mg/dL AST 25 (12-35) U/L ALT 18 (4-35) U/L Alkaline Phosphatase 88 (40-150) U/L C-Reactive Protein < 0.5 L (0.5-1.0) mg/dL Total Protein 7.4 (6.0-8.3) g/dL Albumin 4.4 (3.3-5.0) g/dL Lipase 73 (23-300) U/L SARS-CoV-2 (PCR) Negative SARS-CoV-2 (Negative) Influenza Type A (PCR) Negative PCR FLU A (Negative) Influenza Type B (PCR) Negative PCR FLU B (Negative) RSV (PCR) Negative PCR RSV (Negative) POC Creatinine 0.9 (0.6-1.3) mg/dl POC Troponin I 0.00 L (0.01-0.04) ng/ml Imaging Data CT scan - abdomen: Attestation: I have reviewed the pertinent imaging results. My impression: Enteritis with no signs of obstruction, mass or other inflammation Radiologist's impression: IMPRESSION: Diffusely fluid-filled small bowel and colon with inflammatory changes of the rectosigmoid colon. Findings suggest a nonspecific enterocolitis. No evidence of obstruction. Discharge Plan Discharge Clinical Impression: Gastroenteritis Patient Disposition: Home w/ Parent or Adult Condition: Improved Instructions: Gastroenteritis (DC) Additional Instructions: I am glad that the fluids and anti nausea medication were so successful. This appears to be gastroenteritis, also known as the stomach flu. The white count was quite elevated but there are no other findings to suggest a different diagnosis. If she continues to have profuse diarrhea, vomiting, severe weakness and especially fever with this illness, I would get re-evaluated. I have prescribed Zofran, the anti nausea medicine. This will reduce the chance of dehydration. Please wake her an automatically give the next dose at around 4 or 5:00 a.m.. After that, continue using the medication every 8 hours as needed if the vomiting returns. Drink lots of fluids, it is okay if the appetite remains low for a day or 2 as long as we are drinking plenty of fluids and urinating at least 4 times daily. She may be a little weaker than usual but should still be able to maintain conversation and take fluids. If this is not the case, please bring her back to the emergency department. Stomach flu is typically very contagious. Try to quarantine for at least the next 48 hours. Activity Level: Activity as Tolerated Prescriptions: No Action aspirin 81 mg tablet,chewable 1 tab PO DAILY calcium carbonate 600 mg calcium (1,500 mg) tablet 1,200 mg PO DAILY ibuprofen 200 mg tablet 200 - 400 mg PO BID PRN Probiotic 3 billion cell capsule 3,000 mmu cells PO DAILY Rx Instructions: administer with a meal cholecalciferol (vitamin D3) 50 mcg (2,000 unit) capsule 4,000 unit PO DAILY melatonin 1 mg tablet 1 mg PO DAILY Follow Up/Referrals: Corrie Leger MD [Primary Care Provider] - Stand Alone Forms: [employer] Info Instructions
[2024-02-27] MEDS: ONDANSETRON 2 MG/ML inj 4 MG IVP (21:25)
[2024-02-27 21:27] LABS: Lactate* 1.6 mmol/L (0.5-1.9)
[2024-02-27 21:34] LABS: Creatinine, Point-of-Care* 0.9 mg/dl (0.6-1.3)
[2024-02-27 21:38] LABS: Basophils Percent Auto 0.1 % (0.0-3.0); Eosinophils Percent Auto 0.3 % (0.0-7.0); Hematocrit 44.1 % (33.0-51.0); Hemoglobin* 14.4 gm/dL (12.0-16.0); Immature Granulocytes Pct Auto 0.2 %; Lymphocytes Percent Auto 3.2 % (20-44); Mean Corpuscular HGB Conc 33 gm/dL (32-36); Mean Corpuscular Hemoglobin 31 pg (26-34); Mean Corpuscular Volume 96 fL (80-100); Monocytes Percent Auto 6.7 % (0.0-11.0); Neutrophils Percent Auto 89.5 % (42.0-72.0); Platelet Count* 298 K/uL (140-440); RDW Coefficient of Variation % 12.5 % (11.5-15.5); Red Blood Count 4.62 m/uL (4.00-5.20); White Blood Count* 21.43 K/uL (4.50-11.00)
[2024-02-27 21:42] LABS: Slide Review Reflex No
[2024-02-27 21:44] LABS: Albumin* 4.4 g/dL (3.3-5.0); Chloride* 104 mmol/L (96-114); Sodium* 139 mmol/L (135-149)
[2024-02-27 21:45] LABS: Potassium* 4.1 mmol/L (3.6-5.1)
[2024-02-27 21:46] LABS: Creatinine* 0.8 mg/dL (0.5-1.5); Est. Creatinine Clearance* 56.27; Estimated Glomerular Filt Rate 80 ml/min
[2024-02-27 21:47] LABS: Alanine Aminotransferase* 18 U/L (4-35); Alkaline Phosphatase* 88 U/L (40-150); Anion Gap 12 mEq/L (7-15); Aspartate Amino Transferase* 25 U/L (12-35); Bilirubin Total* 0.5 mg/dL (0.1-1.5); Blood Urea Nitrogen* 20 mg/dL (7-30); Carbon Dioxide* 23 mmol/L (20-32); Glucose* 139 mg/dL (60-115); Lipase* 73 U/L (23-300); Total Protein* 7.4 g/dL (6.0-8.3)
[2024-02-27 21:53] LABS: C Reactive Protein* < 0.5 mg/dL (0.5-1.0)
[2024-02-27 22:06] LABS: PCR FLU A Negative PCR FLU A (Negative); PCR FLU B Negative PCR FLU B (Negative); PCR RSV Negative PCR RSV (Negative); SARS PCR* Negative SARS-CoV-2 (Negative)
[2024-02-27] MEDS: 0.9 % SODIUM CHLORIDE 1000 ml 1,000 ML IV (22:25)
--- NOTE | 2024-02-28 00:06 | PC.NURSE ---
Usman and verbal D/C per MD and RN with rn homecare. Pt took meds as ordered without diff. Instructed use of Insty meds and what med is given for-especially to wake up at [id number] to repeat zofran. Encouraged clear liquids for a start and make sure pt is urinating. economics consultant assist with dsg pt.
[2024-02-28] MEDS: LOPERAMIDE HCL 2 MG CAPSULE 4 MG PO (00:09)
== END 2024-02-28 00:13 | disposition home or self-care (01) ==
PROVIDERS: Emergency Provider Family Medicine; PCP Family Medicine
DX: K52.9 Noninfective gastroenteritis and colitis, unspecified (principal)
CPT/HCPCS: 36415; 74177; 80053; 81003; 82565; 83605; 83690; 84484; 85025; 86140; 87631; 93005; 96374; 96375; 99284; 99285; A9270; J2405; J7030; Q9967